=== PATIENT | male | born 1990 | race Hispanic/Latino ===

== ENCOUNTER 2021-01-24 09:54 | Emergency (ER) | payer OTHER ==
[~2021-01-24] VITALS: Ht 177.8 cm; Wt 95.2 kg
== END 2021-01-24 11:45 | disposition home or self-care (01) ==
LOC: ED 09:54
DX: S60.512A Abrasion of left hand, initial encounter (principal); M79.5 Residual foreign body in soft tissue; W45.8XXA Other foreign body or object entering through skin, initial encounter
CPT/HCPCS: 73130; 99283-25